=== PATIENT | male | born 1935 | race Caucasian/White ===

== ENCOUNTER 2022-05-06 09:28 | Day surgery (SDC) | payer MEDICARE, BC ==
[2022-05-06] MEDS: Polymyxin B/Trimethoprim 10 ML Bottle EYERT SCH ×4 (09:47→11:37)
[2022-05-06] MEDS: Brimonidine 0.2% Ophth Soln 5 ML Bottle EYERT SCH ×4 (09:52→11:37)
[2022-05-06] MEDS: Phenylephrine 2.5% Ophth Soln 2 ML Bot EYERT SCH ×6 (09:57→11:15)
[2022-05-06] MEDS: Tropicamide 1% Ophth Soln 15 ML Bottle EYERT SCH ×4 (10:02→10:42)
[2022-05-06] MEDS: Pilocarpine 4% Ophth Soln 15 ML Bot EYERT SCH ×2 (10:46→11:37)
[2022-05-06] MEDS: Lidocaine 1% PF 2 ML SDV INJECT SCH ×2 (10:46→11:22)
[2022-05-06] MEDS: Tetracaine HCl/PF 0.5% 4 ML Bottle EYEBOTH SCH ×5 (10:46→11:22)
[2022-05-06] MEDS: Cefuroxime 10 MG/ML SYRINGE EYERT SCH ×2 (10:46→11:31)
[2022-05-06 11:53] VITALS: BP 133/85; PULSE 99
== END 2022-05-06 11:48 | disposition home or self-care (01) ==
LOC: JD.SDS 09:28
PROVIDERS: ATTEND Ophthalmology
DX: H25.813 Combined forms of age-related cataract, bilateral (principal); H21.81 Floppy iris syndrome; H21.41 Pupillary membranes, right eye; H16.103 Unspecified superficial keratitis, bilateral; H02.834 Dermatochalasis of left upper eyelid; H02.831 Dermatochalasis of right upper eyelid; H35.363 Drusen (degenerative) of macula, bilateral; M10.9 Gout, unspecified; E07.9 Disorder of thyroid, unspecified; Z79.890 Hormone replacement therapy; Z79.899 Other long term (current) drug therapy
CPT/HCPCS: 66982; A9270; J0697; C1780; J3490

== ENCOUNTER 2022-05-12 07:15 | Day surgery (SDC) | payer MEDICARE, BC ==
[2022-05-12] MEDS: Polymyxin B/Trimethoprim 10 ML Bottle EYELF SCH ×4 (07:21→09:13)
[2022-05-12] MEDS: Brimonidine 0.2% Ophth Soln 5 ML Bottle EYELF SCH ×5 (07:26→09:13)
[2022-05-12] MEDS: Phenylephrine 2.5% Ophth Soln 2 ML Bot EYELF SCH ×6 (07:31→08:51)
[2022-05-12] MEDS: Tropicamide 1% Ophth Soln 15 ML Bottle EYELF SCH ×4 (07:36→08:18)
[2022-05-12] MEDS: Cefuroxime 10 MG/ML SYRINGE EYELF SCH ×2 (07:52→09:12)
[2022-05-12] MEDS: Lidocaine 1% PF 2 ML SDV INJECT SCH ×2 (07:52→08:58)
[2022-05-12] MEDS: Tetracaine HCl/PF 0.5% 4 ML Bottle EYEBOTH SCH ×5 (07:52→08:57)
[2022-05-12] MEDS: Pilocarpine 4% Ophth Soln 15 ML Bot EYELF SCH ×2 (07:52→09:13)
[2022-05-12 09:26] VITALS: BP 145/77; PULSE 76
== END 2022-05-12 09:22 | disposition home or self-care (01) ==
LOC: JD.SDS 07:15
PROVIDERS: ATTEND Ophthalmology
DX: H25.813 Combined forms of age-related cataract, bilateral (principal); H21.81 Floppy iris syndrome; H21.42 Pupillary membranes, left eye; H35.363 Drusen (degenerative) of macula, bilateral; H35.3131 Nonexudative age-related macular degeneration, bilateral, early dry stage; H16.223 Keratoconjunctivitis sicca, not specified as Sjogren's, bilateral; H02.834 Dermatochalasis of left upper eyelid; H02.831 Dermatochalasis of right upper eyelid; K21.9 Gastro-esophageal reflux disease without esophagitis; M10.9 Gout, unspecified; E07.9 Disorder of thyroid, unspecified; Z87.891 Personal history of nicotine dependence; Z79.890 Hormone replacement therapy; Z79.899 Other long term (current) drug therapy
CPT/HCPCS: 66982; A9270; C1780; J0697; J3490